=== PATIENT | female | born 1930 | race Caucasian/White ===

== ENCOUNTER 2017-03-16 14:39 | Emergency (ER) | payer MEDICARE | END 2017-03-16 16:25 | disposition home or self-care (01) | LOC: D.ER 14:39 | DX: Z91.81 History of falling (principal); G30.9 Alzheimer's disease, unspecified; F02.80 Dementia in other diseases classified elsewhere, unspecified severity, without behavioral disturbance, psychotic disturbance, mood disturbance, and anxiety ==

== ENCOUNTER 2017-05-18 10:08 | Emergency (ER) | payer MEDICARE | END 2017-05-18 14:51 | disposition home or self-care (01) | LOC: D.ER 10:08 | DX: S82.432A Displaced oblique fracture of shaft of left fibula, initial encounter for closed fracture (principal); X58.XXXA Exposure to other specified factors, initial encounter; Y93.89 Activity, other specified; Y92.129 Unspecified place in nursing home as the place of occurrence of the external cause; G30.9 Alzheimer's disease, unspecified; F02.80 Dementia in other diseases classified elsewhere, unspecified severity, without behavioral disturbance, psychotic disturbance, mood disturbance, and anxiety ==

== ENCOUNTER 2018-08-22 08:47 | Inpatient (IN) | payer MEDICARE ==
[~2018-08-22] VITALS: Ht 160 cm; Wt 68.0 kg
[2018-08-22 09:15] VITALS: BP 139/66
[2018-08-22 10:03] LABS: UDS - AMPHET NEGATIVE QUAL (NEGATIVE); UDS - BARB NEGATIVE QUAL (NEGATIVE); UDS - BENZO NEGATIVE QUAL (NEGATIVE); UDS - COCAINE NEGATIVE QUAL (NEGATIVE); UDS - OPIATE NEGATIVE QUAL (NEGATIVE); UDS - PCP NEGATIVE QUAL (NEGATIVE); UDS - THC NEGATIVE QUAL (NEGATIVE)
[2018-08-22 10:15] LABS: HEMATOCRIT 45.3 % (36.0-48.0); HEMOGLOBIN 15.1 g/dL (12-16); MCH 30.8 pg (26.0-34.0); MCHC 33.3 g/dL (31.0-37.0); MCV 92.4 fL (80.0-100.0); MEAN PLATELET VOLUME 9.9 fL (7.4-10.4); PLATELET COUNT 170 10x3/uL (130-400); WBC 8.4 10x3/uL (4.8-10.8)
[2018-08-22 10:27] LABS: APPEARANCE CLOUDY (CLEAR); COLOR YELLOW (YELLOW); SPECIFIC GRAVITY 1.015 (1.005-1.020)
[2018-08-22 10:28] LABS: BILIRUBIN 1+ (NEGATIVE); GLUCOSE NEGATIVE (NEGATIVE); KETONE NEGATIVE (NEGATIVE); NITRITE POSITIVE (NEGATIVE); PROTEIN TRACE mg/dL (NEGATIVE)
[2018-08-22 10:29] LABS: INR 1.04 (0.85-1.17); PROTIME 13.2 SECONDS (11.6-15.0)
[2018-08-22 10:30] LABS: EPITHELIAL CELLS >50 /hpf (0-5); RED CELLS - URINE 0-5 /hpf (0-5); WHITE CELLS - URINE 0-5 /hpf (0-5)
[2018-08-22 10:30] LABS: APTT 29.2 SECONDS (22.8-39.4)
[2018-08-22 10:31] LABS: BACTERIA FEW /hpf (NONE SEEN); YEAST NONE SEEN /hpf (NONE SEEN)
[2018-08-22 10:39] LABS: ALKALINE PHOSPHATASE 115 U/L (46-116); ALT (SGPT) 60 U/L (10-68); CALC OSMOLALITY 280 mosm/kg (275-300); CALCIUM 9.2 mg/dL (8.5-10.1); CARBON DIOXIDE 27.3 mmol/L (21.0-32.0); CHLORIDE - SERUM 105 mmol/L (98-107); CKMB 3.8 U/L (0.0-3.6); CREATINE KINASE 438 UL (21-215); CREATININE - SERUM 0.8 mg/dL (0.6-1.3); GLUCOSE 90 mg/dL (74-106); MAGNESIUM - SERUM 2.3 mg/dL (1.8-2.4); POTASSIUM - SERUM 4.7 mmol/L (3.5-5.1); PROTEIN - SERUM 6.7 g/dL (6.4-8.2); SODIUM 139 mmol/L (136-145); THYROID STIMULATING HORMONE 2.83 uIU/mL (0.36-3.74); UREA NITROGEN 20 mg/dL (7-18); eGFR NON AFRICAN AMERICAN 72 mL/min (90-120)
[2018-08-22 10:42] LABS: TROPONIN-I < 0.017 ng/mL (0.000-0.060)
[2018-08-22 10:47] LABS: PLATELET ESTIMATE NORMAL
[2018-08-22 10:48] LABS: BASOPHILS 0 % (0-2); EOSINOPHILS 0 % (0-7); LYMPHOCYTES 20 % (15-50); MONOCYTES 5 % (2-11); PLATELET MORPHOLOGY NORMAL PLT MORPH
[2018-08-22 10:49] LABS: NEUTROPHILS 75 % (40-80)
[2018-08-22 16:00] VITALS: BP 156/102
[2018-08-22 17:27] VITALS: BP 141/75
[2018-08-22 20:00] VITALS: BP 147/73
[2018-08-23 05:13] VITALS: BP 108/60
[2018-08-23 05:52] LABS: BASOPHILS 0.3 % (0-2); HEMATOCRIT 40.4 % (36.0-48.0); HEMOGLOBIN 13.4 g/dL (12-16); IMMATURE GRANULOCYTES 0.3 % (0-5); LYMPHOCYTES 50.1 % (15-50); MCH 30.1 pg (26.0-34.0); MCHC 33.2 g/dL (31.0-37.0); MCV 90.8 fL (80.0-100.0); MONOCYTES 9.8 % (2-11); NEUTROPHILS 37.5 % (40-80); PLATELET COUNT 163 10x3/uL (130-400); RBC 4.45 10x6/uL (4.00-5.40); RDW 13.7 % (11.5-14.5)
[2018-08-23 06:18] LABS: ALBUMIN 2.6 g/dL (3.4-5.0); ANION GAP 9.5 mmol/L (8-16); BILIRUBIN - TOTAL 0.79 mg/dL (0.2-1.3); CALCIUM 8.7 mg/dL (8.5-10.1); CARBON DIOXIDE 27.8 mmol/L (21.0-32.0); CREATININE - SERUM 0.8 mg/dL (0.6-1.3); POTASSIUM - SERUM 4.3 mmol/L (3.5-5.1); PROTEIN - SERUM 5.8 g/dL (6.4-8.2)
[2018-08-23 08:00] VITALS: BP 158/57
[2018-08-23 11:56] VITALS: BP 126/64
[2018-08-23 12:58] VITALS: Ht 160 cm; Wt 68.0 kg
[2018-08-23 14:49] VITALS: BP 154/72
[2018-08-23 20:39] VITALS: BP 125/64
[2018-08-24 04:00] VITALS: BP 149/73
[2018-08-24 04:05] VITALS: BP 145/69
[2018-08-24 09:44] VITALS: BP 143/77
[2018-08-24 17:42] VITALS: BP 181/73
[2018-08-24 20:00] VITALS: BP 150/70
[2018-08-25 09:33] VITALS: BP 154/70
[2018-08-25 14:17] VITALS: BP 168/77
== END 2018-08-25 17:01 | disposition home or self-care (01) | DRG 690 ==
LOC: D.ER 08:47 → D.MS 13:54 → D.EDHOLD 13:54 → D.MS 15:38
PROVIDERS: Family Medicine
DX: N39.0 Urinary tract infection, site not specified (principal); I10 Essential (primary) hypertension; R41.82 Altered mental status, unspecified; G30.9 Alzheimer's disease, unspecified; F02.80 Dementia in other diseases classified elsewhere, unspecified severity, without behavioral disturbance, psychotic disturbance, mood disturbance, and anxiety; R41.0 Disorientation, unspecified